=== PATIENT | male | born 1990 | race Two or more races ===

== ENCOUNTER 2024-01-30 15:50 | Emergency (ER) | payer MEDICAID, OTHER ==
[~2024-01-30] VITALS: Ht 167.6 cm; Wt 94.9 kg
[2024-01-30 16:13] VITALS: BP 133/79; PULSE 89; RESP 16; O2SAT 98
[2024-01-30] MEDS ORDERED: CEFD300C2 PO (17:38)
[2024-01-30] MEDS ORDERED: TRAM50TA2 PO (17:38)
[2024-01-30] MEDS ORDERED: BACI1OIN45 EX (17:38)
[2024-01-30] MEDS ORDERED: DICL50TA2 PO (17:38)
[2024-01-30] MEDS: TETANUS-DIPTH-ACEL PERTUSSIS 0.5ML SYR Tdap IM ONE (18:03)
[2024-01-30] MEDS: BACITRACIN TOP OINT 1 UD PKG TOP ONE (18:03)
== END 2024-01-30 19:45 | disposition home or self-care (01) ==
LOC: ER 15:50
DX: S61.204A Unspecified open wound of right ring finger without damage to nail, initial encounter (principal); E78.5 Hyperlipidemia, unspecified; Z79.899 Other long term (current) drug therapy; X58.XXXA Exposure to other specified factors, initial encounter; Y93.89 Activity, other specified; Y92.89 Other specified places as the place of occurrence of the external cause; Y99.8 Other external cause status
CPT/HCPCS: 90471; 90715